=== PATIENT | male | born 1995 | race Two or more races ===

== ENCOUNTER 2020-10-01 20:23 | Emergency (ER) | payer SELFPAY ==
[~2020-10-01] VITALS: Ht 185.4 cm; Wt 114.3 kg
[2020-10-01 20:29] VITALS: BP 134/83
--- NOTE | 2020-10-01 21:05 | NUR ---
assumed care of pt at this time
== END 2020-10-01 22:07 | disposition home or self-care (01) ==
LOC: ED 21:39
DX: S06.0X0A Concussion without loss of consciousness, initial encounter (principal); S00.83XA Contusion of other part of head, initial encounter; W01.0XXA Fall on same level from slipping, tripping and stumbling without subsequent striking against object, initial encounter; Y93.89 Activity, other specified; Y92.410 Unspecified street and highway as the place of occurrence of the external cause; Y99.0 Civilian activity done for income or pay
CPT/HCPCS: 70450; 70486; 99285